=== PATIENT | male | born 1995 | race African-American/Black ===

== ENCOUNTER 2017-10-04 08:48 | Emergency (ER) | payer SELFPAY ==
[2017-10-04] MEDS: traMADol 50 MG TABLET PO (09:41)
[2017-10-04] MEDS: IBUPROFEN 800 MG TABLET. PO (09:42)
== END 2017-10-04 10:01 | disposition home or self-care (01) ==
LOC: ER 08:48
DX: S39.012A Strain of muscle, fascia and tendon of lower back, initial encounter (principal); G89.29 Other chronic pain; X58.XXXA Exposure to other specified factors, initial encounter; Y93.89 Activity, other specified; Y92.89 Other specified places as the place of occurrence of the external cause; Y99.8 Other external cause status
CPT/HCPCS: 99283